=== PATIENT | female | born 1985 | race Caucasian/White ===

== ENCOUNTER 2022-11-13 18:32 | Emergency (ER) | payer MEDICAID, SELFPAY ==
[2022-11-13 18:38] VITALS: BP 113/44; PULSE 85; RESP 18; TEMP 36.7; O2SAT 97
[2022-11-13 19:07] VITALS: BP 128/86; PULSE 84; O2SAT 98; BMI 34.2
--- NOTE | 2022-11-13 20:12 | ED_ITS ---
HPI - Abdominal Pain General Chief Complaint: Abdominal Pain Stated Complaint: abdominal pain Time Seen by Provider: 11/13/22 19:47 Source: patient Mode of arrival: ambulatory Limitations: no limitations History of Present Illness HPI narrative: Patient's history of asthma, ADHD anxiety came from [facility] being discharged tomorrow was on prednisone clindamycin and now on Levaquin for sore throat and sinus infection complaining of upper abdominal pain and loose bowels for last 2 days no vomiting no nausea no fever or chills no urinary symptoms Related Data Previous Rx's Medication Instructions Recorded famotidine 20 mg tablet (Pepcid) 20 mg PO BID #20 tabs 11/13/22 sucralfate 1 gram tablet 1 g PO BID #30 tabs 11/13/22 Allergies Allergy/AdvReac Type Severity Reaction Status Date / Time No Known Allergies Allergy Verified 11/13/22 20:12 Review of Systems Review of Systems Yes all other systems are reviewed and are negative PMFSH Social History Social History Advance Directives: No Advance Directives Information Provided: No Physical Exam ED Vital Signs: Vital Signs - 24 hr 11/13/22 18:38 11/13/22 21:01 Temperature 98.1 F 98.5 F Pulse Rate 85 71 Respiratory Rate 18 18 Blood Pressure 113/44 L 104/61 Pulse Oximetry 97 98 Oxygen Delivery Method Room Air Room Air BMI result Body Mass Index 34.2 Appearance: Alert. Oriented X3. No acute distress. Eyes: PERRLA, ENT: Pharynx normal. Oral Mucosa moist Neck: Normal inspection. Neck supple. CVS: Normal heart rate and rhythm. Pulses normal. Respiratory: No respiratory distress. Equal air entry bilateral, no wheezing/rales/rhonchi Abdomen: Soft mild epigastric tenderness no rebound tenderness or guarding. Bowel sounds are present, no mass palpable, no CVA tenderness Skin: Skin warm and dry. Normal skin color. Normal skin turgor. Extremities: No lower extremity edema. No calf tenderness Neuro: Oriented X 3. No motor deficit. Medical Decision Making Medical Decision Making MDM Narrative: Patient with upper abdominal symptoms likely gastritis from using antibiotics patient feels hungry taking p.o. fluids in the ER urine is negative discharge patient on Pepcid and sucralfate Lab Data [facility] Lab Attestation statement: I reviewed the patient's lab results. Labs: Lab Results 11/13/22 11/13/22 Range/Units 20:27 20:27 Urine Color Yellow Urine Appearance Clear Urine pH 8.0 (5.0-9.0) Ur Specific [place] 1.015 (1.005-1.025) Urine Protein Negative (Neg-Trace) mg/dL Urine Glucose (UA) Negative (Negative) mg/dL Urine Ketones Negative (Negative) mg/dL Urine Blood Negative (Negative) Urine Nitrite Negative (Negative) Ur Leukocyte Esterase Trace H (Negative) Urine RBC 0-2 (0-2) /HPF Urine WBC 0-5 (0-5) /HPF Ur Squamous Epith Cells 0-2 (0-2) /HPF Urine Bacteria None Seen (None Seen) Hyaline Casts 0-2 (0-2) /LPF Urine Test NEGATIVE (NEGATIVE) Medications Administered Discontinued Medications Generic Name Dose Route Start Last Admin Trade Name Freq PRN Reason Stop Dose Admin Al Hydroxide/Mg Hydroxide 30 ml 11/13/22 21:28 11/13/22 21:45 Magnesium Hydrox/Alum Hydrox 30 Ml Oral.Susp PO 11/13/22 21:29 30 ml ONCE ONE Administration Famotidine 20 mg 11/13/22 21:27 11/13/22 21:45 Famotidine 20 Mg Tablet PO 11/13/22 21:28 20 mg ONCE ONE Administration Discharge Plan Discharge Clinical Impression: Gastritis Patient Disposition: Home, Self-Care Instructions: Gastritis (ED) Additional Instructions: Your abdominal pain is likely from gastritis from use of antibiotics and Prednisone Take Pepcid and sucralfate as prescribed Prescriptions: New famotidine [Pepcid] 20 mg tablet 20 mg PO BID Qty: 20 0RF sucralfate 1 gram tablet 1 g PO BID Qty: 30 0RF
[2022-11-13 20:38] LABS: UPreg QC Valid YES
[2022-11-13 20:39] LABS: Appearance Urine Clear; Color Urine Yellow; Glucose Urine UA Negative (Negative); Leukocyte Esterase Urine Trace (Negative); Nitrite Urine Negative (Negative); Specific Gravity - Urine 1.015 (1.005-1.025); UMIC TRIGGER UACC YES; Urine Blood Negative (Negative); Urine Ketones Negative (Negative); Urine Protein Negative (Neg-Trace)
[2022-11-13 20:41] LABS: Urine Pregnancy NEGATIVE (NEGATIVE)
[2022-11-13 20:44] LABS: Bacteria Urine None Seen (None Seen); Hyaline Casts Urine 0-2 /LPF (0-2); RBC Urine 0-2 /HPF (0-2); Squamous Epithelial Cell Urine 0-2 /HPF (0-2); WBC Urine 0-5 /HPF (0-5)
[2022-11-13 21:01] VITALS: BP 104/61; PULSE 71; RESP 18; TEMP 36.9; O2SAT 98
--- NOTE | 2022-11-13 21:40 | PC.NURSE ---
Report given to staff at [facility].
[2022-11-13] MEDS: Magnesium Hydrox/Alum Hydrox 30 ML ORAL.SUSP PO (21:45)
[2022-11-13] MEDS: Famotidine 20 MG TABLET PO (21:45)
--- NOTE | 2022-11-13 22:26 | PC.NURSE ---
Report to [facility] crew. Pt back to [facility]
== END 2022-11-13 22:27 | disposition home or self-care (01) ==
PROVIDERS: Emergency Provider Internal Medicine
DX: K29.70 Gastritis, unspecified, without bleeding (principal); R10.10 Upper abdominal pain, unspecified; Z79.899 Other long term (current) drug therapy
CPT/HCPCS: 81001; 81025; 99283